=== PATIENT | female | born 1985 | race Caucasian/White ===

== ENCOUNTER → 2018-02-06 | Outpatient (CLI) | payer OTHER ==
[~2018-02-06] MED LIST: MOTRIN800 MG PO; Micronor,Nor-Q-D,Err PO; ORTHO TRI-CY1 TABLE1 PO; ZOLOFT100 MG PO
== END | disposition home or self-care (01) ==
LOC: OPR 01-23 09:00 → EDSTATUS 09:00
PROC: 0FB23ZX Excision of Left Lobe Liver, Percutaneous Approach, Diagnostic (ICD-10-PCS; principal; 2018-02-06)
DX: R16.0 Hepatomegaly, not elsewhere classified (principal)
CPT/HCPCS: 77012; 85027; 85610; 85730; 88305; J2270

== ENCOUNTER → 2018-05-07 | Outpatient (CLI) | payer OTHER | END | disposition home or self-care (01) | LOC: RAD 05-05 13:00 | DX: R10.2 Pelvic and perineal pain (principal) | CPT/HCPCS: 76856 ==